=== PATIENT | female | born 1995 | race Caucasian/White ===

== ENCOUNTER 2022-05-16 03:27 | Emergency (ER) | payer MEDICAID ==
[~2022-05-16] VITALS: Ht 160 cm; Wt 61.2 kg
--- NOTE | 2022-05-16 04:06 | NUR ---
BIBFRIEND FROM HOME C/O RLQ ABD PAIN SINCE 2199. +N/V. AWAKE AND ALERT X4 AMBULATES WITH STEADY GAIT. V/S WNL
--- NOTE | 2022-05-16 04:08 | NUR ---
URINE COLLECTED AND SENT TO LAB
--- NOTE | 2022-05-16 04:13 | NUR ---
DOCTOR CARBAJAL AT PT BEDSIDE
[2022-05-16] MEDS ORDERED: KETOROLAC TROMETHAMINE 15 MG/ML VIAL ONE (04:17)
[2022-05-16] MEDS ORDERED: ONDANSETRON HCL/PF 4 MG/2 ML VIAL ONE (04:18)
[2022-05-16 04:19] LABS: BILIRUBIN,URINE 1+ (NEGATIVE); COLOR,URINE YELLOW (YELLOW); LEUKOCYTE ESTERASE ,URINE NEGATIVE (NEGATIVE); NITRITE, URINE NEGATIVE (NEGATIVE); PROTEIN,URINE NEGATIVE (NEGATIVE); UGLUCOSE NEGATIVE (NEGATIVE); UROBILINOGEN,URINE 0.2 EU/dL (0.2)
[2022-05-16] MEDS ORDERED: ONDANSETRON HCL/PF 4 MG/2 ML VIAL IVP ONE (04:30)
[2022-05-16] MEDS ORDERED: IV NS 0.9% 1,000 ML BAG IV ONE (04:30)
[2022-05-16] MEDS ORDERED: KETOROLAC TROMETHAMINE INJ 30 MG/ML VIAL IV ONE (04:30)
--- NOTE | 2022-05-16 04:39 | NUR ---
blood collected and sent to lab. pt refused meds ordered. AWARE. PT SIGNED PREG WAIVER FORM. VERBALIZED UNDERSTANDING
[2022-05-16 04:45] LABS: BASOPHILS % (AUTO) 0.3 % (0.0-2.0); EOSINOPHILS % (AUTO) 0.2 % (0.0-6.0); HEMATOCRIT 33 % (33-45); HEMOGLOBIN 11.1 g/dL (11.5-14.8); LYMPHOCYTES # (AUTO) 1.3 K/uL (0.8-4.8); LYMPHOCYTES % (AUTO) 9.2 % (20.0-44.0); MEAN CORPUSCULAR HGB CONC 33 g/dl (31.0-36.0); MEAN CORPUSCULAR VOLUME 83 fL (82-100); MONOCYTES # (AUTO) 0.7 K/uL (0.1-1.30); MONOCYTES % (AUTO) 4.9 % (2.0-12.0); NEUTROPHILS # (AUTO) 12.2 K/uL (1.8-8.9); NEUTROPHILS % (AUTO) 85.4 % (43.0-81.0); PLATELET COUNT (AUTO) 273 K/uL (150-450); RED BLOOD CELL COUNT(AUTO) 4.02 MIL/uL (4.0-5.2); WHITE BLOOD COUNT (AUTO) 14.3 K/uL (4.3-11.0)
[2022-05-16 04:57] LABS: BACTERIA,URINE Few /HPF (None Seen)
[2022-05-16 05:00] LABS: SQUAMOUS EPITHELIAL CELL,UR Moderate /HPF (None Seen)
[2022-05-16 05:17] LABS: CALCIUM, SERUM 8.9 mg/dL (8.5-10.1); CREATININE 0.8 mg/dL (0.6-1.3)
[2022-05-16 05:18] LABS: ALBUMIN 3.8 g/dL (3.4-5.0); BILIRUBIN,DIRECT 0.1 mg/dL (0.0-0.2); BILIRUBIN,TOTAL 0.4 mg/dL (0.2-1.0); TOTAL PROTEIN, SERUM 7.3 g/dL (6.4-8.2)
[2022-05-16] MEDS ORDERED: ACETAMINOPHEN 325 MG TABLET PO ONE (06:30)
[2022-05-16] MEDS ORDERED: ONDANSETRON 4 MG TAB.RAPDIS SL ONE (06:30)
[2022-05-16] MEDS ORDERED: ONDANSETRON 4 MG TAB.RAPDIS ONE (06:32)
[2022-05-16] MEDS ORDERED: ACETAMINOPHEN ES 500 MG TABLET ONE (06:32)
--- NOTE | 2022-05-16 06:50 | NUR ---
DR CARBAJAL ON THE PHONE WITH DR ESTRADA, DINING ROOM BUSSER
--- NOTE | 2022-05-16 07:11 | NUR ---
Patient discharged to home in stable condition. Written and verbal after care instructions given. Patient verbalizes understanding of instruction.
[2022-05-16 07:12] VITALS: BP 111/66
== END 2022-05-16 07:12 | disposition home or self-care (01) ==
LOC: ER 03:31
DX: N83.291 Other ovarian cyst, right side (principal); Z88.0 Allergy status to penicillin
CPT/HCPCS: 99284; 74176; 85025; 80048; 83690; 80076; 84703; 81001; 36415; Q0162; J1885; J2405; J7030